=== PATIENT | female | born 1990 | race Two or more races ===

== ENCOUNTER 2016-04-06 00:15 | Emergency (ER) | payer SELFPAY ==
[~2016-04-06 00:15] MED LIST: HYDR-971 PO; ONDA4TAB10 SL
[2016-04-06 00:20] VITALS: BP 157/88
[2016-04-06 00:53] LABS: BASO # 0.1 x10^3/uL (0.0-0.2); BASO % 1 % (0-3); EOS % 2 % (0-3); HEMATOCRIT 39.2 % (36.0-47.0); HEMOGLOBIN 13.4 g/dL (12.0-15.5); LYMPH % 43 % (24-48); MEAN CORPUSCULAR HEMOGLOBIN 30 pg (25-35); MEAN CORPUSCULAR HGB CONC 34 g/dL (31-37); MEAN CORPUSCULAR VOLUME 89 fL (79-100); MONO % 6 % (0-9); NEUT % 48 % (31-73); PLATELET COUNT 240 x10^3/uL (140-400); RED BLOOD COUNT 4.43 x10^6/uL (3.50-5.40); RED CELL DISTRIBUTION WIDTH 12.7 % (11.5-14.5); WHITE BLOOD COUNT 9.2 x10^3/uL (4.0-11.0)
[2016-04-06] MEDS ORDERED: MISOPROSTOL 200 MCG TABLET PO ONE (02:00)
[2016-04-06] MEDS ORDERED: AZITHROMYCIN 250 MG TABLET PO ONE (02:00)
[2016-04-06] MEDS ORDERED: NORMAL SALINE IV ONE (02:00)
[2016-04-06] MEDS ORDERED: CEFTRIAXONE SODIUM IV ONE (02:00)
[2016-04-06] MEDS ORDERED: ONDANSETRON PF 4 MG/2 ML VIAL. IV ONE (02:00)
[2016-04-06] MEDS ORDERED: MISO200T PO (02:29)
[2016-04-06] MEDS ORDERED: HYDR-2666 PO (02:29)
--- NOTE | 2016-04-06 02:30 | PHYS DOC ---
Past Medical History Past Medical History: No Pertinent History Past Surgical History: Tonsillectomy Alcohol Use: None Drug Use: None Adult General Chief Complaint Chief Complaint: VAGINAL BLEEDING HPI HPI Patient is a 25 year old female approx 13 weeks gestation by dates who presents with mild intermittent suprapubic abdominal discomfort and gradually increasing vaginal bleeding. She was seen here on 03/31/16 and diagnosed with inevitable by exam and ultrasound. Her pain has gradually increased in her mouth bleeding has increased over the past few days, but she denies having passed products of conception. She has used 4 pads in the past 24 hours. She is passing blood and blood clots. She denies dysuria, diarrhea, fever or chills, nausea or vomiting. Review of Systems Review of Systems Constitutional: Denies fever or chills [] Eyes: Denies change in visual acuity, redness, or eye pain [] HENT: Denies nasal congestion or sore throat [] Respiratory: Denies cough or shortness of breath [] Cardiovascular: No additional information not addressed in HPI [] GI: Denies nausea, vomiting, bloody stools or diarrhea [] : Denies dysuria or hematuria [] Musculoskeletal: Denies back pain or joint pain [] Integument: Denies rash or skin lesions [] Neurologic: Denies headache, focal weakness or sensory changes [] Endocrine: Denies polyuria or polydipsia [] Current Medications Current Medications Current Medications Medications (Trade) Dose Ordered Sig/Rebeka Start Time Stop Time Status Last Admin Dose Admin Azithromycin (Zithromax) 1,000 mg 1X ONCE 04/06/16 02:00 04/06/16 02:01 DC 04/06/16 01:53 1,000 MG Ceftriaxone Sodium/Sodium Chloride (Rocephin/Iv Sodium Chloride 0.9% 50ml) 50 ml @ 100 mls/hr 1X ONCE 04/06/16 02:00 04/06/16 02:29 DC 04/06/16 01:53 100 MLS/HR Misoprostol (Cytotec 200mcg Tab) 600 mcg 1X ONCE 04/06/16 02:00 04/06/16 02:01 DC 04/06/16 01:53 600 MCG Ondansetron HCl 4 mg 4 mg 1X ONCE 04/06/16 02:00 04/06/16 02:01 DC 04/06/16 01:53 4 MG Allergies Allergies Allergies Coded Allergies Type Severity Reaction Last Updated Verified No Known Drug Allergies 03/31/16 No Physical Exam Physical Exam Constitutional: Well developed, well nourished, no acute distress, non-toxic appearance. [] HENT: Normocephalic, atraumatic, bilateral external ears normal, oropharynx moist, nose normal. [] Eyes: PERRLA, EOMI. [] Neck: Normal range of motion, supple. [] Cardiovascular:Heart rate regular rhythm [] Lungs & Thorax: Bilateral breath sounds clear to auscultation [] Abdomen: Bowel sounds normal, soft, mild suprapubic tenderness, no guarding or rebound. [] Genitourinary: Genitalia without lesions, No vaginitis or cervicitis, Small bloody and clear/gelatinous discharge pooling in vault with no active bleeding, Closed os Skin: Warm, dry, no erythema, no rash. [] Back: No tenderness, no CVA tenderness. [] Extremities: No tenderness, ROM intact, no edema. [] Neurologic: Alert and oriented X 3, normal motor function, normal sensory function, no focal deficits noted. [] Psychologic: Affect normal, judgement normal, mood normal. [] Current Patient Data Vital Signs Vital Signs Date Time Temp Pulse Resp B/P Pulse Ox O2 Delivery O2 Flow Rate FiO2 04/06/16 00:20 98.6 88 18 157/88 100 Room Air 98.6 Lab Values Laboratory Tests Test 04/06/16 00:40 White Blood Count 9.2x10^3/uL (4.0-11.0) Red Blood Count 4.43x10^6/uL (3.50-5.40) Hemoglobin 13.4g/dL (12.0-15.5) Hematocrit 39.2% (36.0-47.0) Mean Corpuscular Volume 89fL (79-100) Mean Corpuscular Hemoglobin 30pg (25-35) Mean Corpuscular Hemoglobin Concent 34g/dL (31-37) Red Cell Distribution Width 12.7% (11.5-14.5) Platelet Count 240x10^3/uL (140-400) Neutrophils (%) (Auto) 48% (31-73) Lymphocytes (%) (Auto) 43% (24-48) Monocytes (%) (Auto) 6% (0-9) Eosinophils (%) (Auto) 2% (0-3) Basophils (%) (Auto) 1% (0-3) Neutrophils # (Auto) 4.4x10^3uL (1.8-7.7) Lymphocytes # (Auto) 4.0x10^3/uL (1.0-4.8) Monocytes # (Auto) 0.6x10^3/uL (0.0-1.1) Eosinophils # (Auto) 0.1x10^3/uL (0.0-0.7) Basophils # (Auto) 0.1x10^3/uL (0.0-0.2) Maternal Serum HCG Beta Subunit 5820mIU/mL (0-6) H Laboratory Tests 04/06/16 00:40 Course & Med Decision Making Course & Med Decision Making Pertinent Labs and Imaging studies reviewed. (See chart for details) Transabdominal bedside ultrasound as performed by me showing continued products of conception visible with gestational sac and pole without heart rate. Quantitative hCG is down trending. Upon review of results last visit, she is positive for chlamydia. She was treated for chlamydia and gonorrhea. Safe sex discussed. Discussed case with Tylor Shin, who recommends follow-up in clinic within 24 hours. I placed her on Cytotec to assist inevitable . Return precautions given. She understands and agrees with plan. Entire encounter performed using [place]-speaking [employer] phone painter and grader cork. Dragon Disclaimer Dragon Disclaimer This electronic medical record was generated, in whole or in part, using a voice recognition dictation system. Departure Departure Impression: Primary Impression: Inevitable Disposition: 01 HOME, SELF-CARE Condition: STABLE Referrals: RADHA MO Jr, MD Patient Instructions: Miscarriage, [id number] Additional Instructions: Take Cytotec to help miscarriage progress. Take Tylenol or ibuprofen as needed for moderate pain. Take hydrocodone as needed for severe pain. Do not drink, drive or operate heavy machinery after taking hydrocodone as it may make sleepy. Follow-up with OB clinic tomorrow. Return for any concerns. Scripts Hydrocodone Bit/Acetaminophen (Hydrocodone-Apap 5-325 )1 Each Tablet1-2 Tab PO PRN Q4-6HRS PRN PAIN #20 TAB Prov:Janie HOWE MD 04/06/16 Misoprostol (Cytotec)200 Mcg Tablet3 Tab PO BID #9 TAB Prov:Janie HOWE MD 04/06/16 Janie HOWE MD Apr 06, 2016 02:30
== END 2016-04-06 02:40 | disposition home or self-care (01) ==
LOC: ER 00:15
DX: O03.9 Complete or unspecified spontaneous abortion without complication (principal)
CPT/HCPCS: 36415; 84702; 85027; 96365; 96375; 99285; J0696; J2405; Q0144

== ENCOUNTER 2020-04-24 00:27 | Emergency (ER) | payer SELFPAY ==
[~2020-04-24] VITALS: Ht 170.2 cm; Wt 59.8 kg
[~2020-04-24 00:27] MED LIST changes: +HYDR-2761 PO; +HYDR-3164 PO; -HYDR-971 PO; +MISO200T PO
[2020-04-24] MEDS ORDERED: CYCLOBENZAPRINE 10 MG TABLET. PO ONE (01:15)
[2020-04-24] MEDS ORDERED: IBUPROFEN 400 MG TABLET. PO ONE (01:15)
--- NOTE | 2020-04-24 01:48 | PHYS DOC ---
Past Medical History Past Medical History: No Pertinent History Past Surgical History: Tonsillectomy, Tubal ligation Smoking Status: Never Smoker Alcohol Use: None Drug Use: None Adult General Chief Complaint Chief Complaint: BACK PAIN - NO INJURY HPI HPI Patient is a 29 year old female denies any past medical history presenting to emergency department for new onset of back pain. Patient states over the last 3 days she has been having worsening sensation of her right posterior lumbar pain. Patient states that last 4 hours it is increased in severity. Patient states she had a similar episode many months ago that spontaneously resolved. Denies any associated fever, chills, nausea, vomit, dysuria pyuria. Review of Systems Review of Systems Constitutional: Denies fever or chills [] Eyes: Denies change in visual acuity, redness, or eye pain [] HENT: Denies nasal congestion or sore throat [] Respiratory: Denies cough or shortness of breath [] Cardiovascular: No additional information not addressed in HPI [] GI: Denies abdominal pain, nausea, vomiting, bloody stools or diarrhea [] : Denies dysuria or hematuria [] Musculoskeletal: Denies back pain or joint pain [] Integument: Denies rash or skin lesions [] Neurologic: Denies headache, focal weakness or sensory changes [] Endocrine: Denies polyuria or polydipsia [] All other systems were reviewed and found to be within normal limits, except as documented in this note. Current Medications Current Medications Current Medications Medications (Trade) Dose Ordered Sig/Rebeka Start Time Stop Time Status Last Admin Dose Admin Cyclobenzaprine HCl (Flexeril) 10 mg 1X ONCE 04/24/20 01:15 04/24/20 01:16 DC 04/24/20 01:28 10 MG Ibuprofen (Motrin) 800 mg 1X ONCE 04/24/20 01:15 04/24/20 01:16 DC 04/24/20 01:28 800 MG Allergies Allergies Allergies Coded Allergies Type Severity Reaction Last Updated Verified No Known Drug Allergies 03/31/16 No Physical Exam Physical Exam Constitutional: Well developed, well nourished, no acute distress, non-toxic a ppearance. [] HENT: Normocephalic, atraumatic, bilateral external ears normal, oropharynx moist, no oral exudates, nose normal. [] Eyes: PERRLA, EOMI, conjunctiva normal, no discharge. [] Neck: Normal range of motion, no tenderness, supple, no stridor. [] Cardiovascular:Heart rate regular rhythm, no murmur [] Lungs & Thorax: Bilateral breath sounds clear to auscultation [] Abdomen: Bowel sounds normal, soft, no tenderness, no masses, no pulsatile masses. [] Skin: Warm, dry, no erythema, no rash. [] Back: Moderate right lower lumbar paraspinal tenderness with palpable muscle spasm. Moderate midline tenderness over the lower lumbar central spinal region. Extremities: No tenderness, no cyanosis, no clubbing, ROM intact, no edema. [] Neurologic: Alert and oriented X 3, normal motor function, normal sensory function, no focal deficits noted. [] Psychologic: Affect normal, judgement normal, mood normal. [] Current Patient Data Vital Signs Vital Signs Date Time Temp Pulse Resp B/P (MAP) Pulse Ox O2 Delivery O2 Flow Rate FiO2 04/24/20 00:45 98.6 75 20 146/92 (110) 98 Room Air 98.6 Lab Values Laboratory Tests Test 04/24/20 00:40 POC Urine HCG, Qualitative Hcg negative (Negative) EKG EKG [] Radiology/Procedures Radiology/Procedures [] Course & Med Decision Making Course & Med Decision Making Pertinent Labs and Imaging studies reviewed. (See chart for details) [] Dragon Disclaimer Dragon Disclaimer This electronic medical record was generated, in whole or in part, using a voice recognition dictation system. Departure Departure Referrals: NO PCP (PCP) TRINA FORD MD Apr 24, 2020 01:47
[2020-04-24] MEDS ORDERED: CYCL10TA2 PO (02:49)
--- NOTE | 2020-04-24 03:11 | RAD ---
LUMBAR SPINE 3 VIEWS Clinical Indication: Reason: back pain : Comparison: None. Findings: There appear to be 6 lumbar type vertebral bodies. No disc space narrowing is seen. There is no evide nce of acute fracture or acute malalignment. The visualized pelvic bones are unremarkable. Sacroilia c joints are symmetric. Nonobstructive bowel gas pattern. IMPRESSION: No acute compression fracture or malalignment. Electronically signed by: Robert Ayoub MD (04/24/2020 3:08 AM) [facility]
[2020-04-24 03:40] VITALS: BP 148/86
== END 2020-04-24 03:40 | disposition home or self-care (01) ==
LOC: ER 00:27
DX: M54.5 Low back pain (principal); R20.2 Paresthesia of skin; Z90.89 Acquired absence of other organs; Z98.51 Tubal ligation status
CPT/HCPCS: 72100; 81025; 99283